=== PATIENT | male | born 1945 | race Caucasian/White ===

== ENCOUNTER 2020-08-10 07:19 | Inpatient (IN) ==
[2020-08-10] MEDS ORDERED: Heparin 1,000 UNITS/500 mL 500 ML ONE (07:40)
[2020-08-10] MEDS ORDERED: Nitroglycerin 1,000 MCG/5 ML VIAL IV ONE (07:40)
[2020-08-10] MEDS ORDERED: ISOVUE-370 200 ML INFUS..BTL ONE (07:40)
[2020-08-10] MEDS ORDERED: *HR* Heparin 10,000 UNIT/10 ML VIAL ONE (07:40)
[2020-08-10] MEDS ORDERED: 0.9 % Sodium Chloride 1,000 ML ONE ×2 (07:40→08:24)
[2020-08-10] MEDS ORDERED: *HR* FentaNYL (PF) 100 MCG/2 ML VIAL ONE (08:49)
[2020-08-10] MEDS ORDERED: *HR* Midazolam HCl 2 MG/2 ML VIAL ONE (08:49)
[2020-08-10] MEDS ORDERED: Perflutren Lipid Microsphere 1.3 ML in 0.9 % Sodium Chloride 8.7 ML IVP PRN (12:37)
[2020-08-10] MEDS ORDERED: Nitroglycerin 0.4 MG TAB.SUBL SL PRN (12:38)
[2020-08-10] MEDS ORDERED: *HR* Heparin 5,000 UNIT/ML VIAL IVP PRN ×2 (12:45)
[2020-08-10] MEDS ORDERED: *HR* Heparin 5,000 UNIT/ML VIAL IVP ONE (12:45)
[2020-08-10] MEDS: Heparin 25,000UNIT/250ML 1/2NS 25,000 UNIT/250 ML IV.SOLN IVC SCH (14:29)
[2020-08-10 14:55] LABS: Basophils % 0.5 %; Eosinophils # 0.3 K/mcL (0.0-0.6); Eosinophils % 5.2 %; Hematocrit 41.6 % (37.5-50.1); Hemoglobin 13.9 g/dL (12.9-16.9); Immature Granulocytes % 0.4 % (0-4); Lymphocytes # 1.3 K/mcL (0.6-4.6); Lymphocytes % 22.5 %; Mean Corpuscular HGB Conc 33.4 g/dL (31.6-35.5); Mean Corpuscular Hemoglobin 30.1 pg (28.0-33.3); Mean Platelet Volume 9.9 fL (9.4-12.4); Monocytes % 17.6 %; Platelet Count 237 K/mcL (140-400); Red Blood Count 4.62 M/mcL (4.19-5.50); Segmented Neutrophils % 53.8 %; White Blood Count 5.6 K/mcL (4.3-11.1)
[2020-08-10 15:04] LABS: INR 1.1; Prothrombin Time 12.4 Seconds (9.4-12.1)
[2020-08-10 15:06] LABS: Activated Partial Thrombo Time 52.3 Seconds (26.0-36.0)
[2020-08-10 15:15] LABS: BUN/Creatinine Ratio 21 (6-26); Blood Urea Nitrogen 16 mg/dL (8-23); Calcium 8.9 mg/dL (8.6-10.3); Carbon Dioxide 26 mEq/L (23-29); Chloride 107 mEq/L (98-107); Chol/HDL Ratio 4.7 (0-4.9); Cholesterol 221 mg/dL (< 200); Glucose 94 mg/dL (70-105); HDL Cholesterol 47 mg/dL (40-59); LDL Cholesterol,Calculated 144 mg/dL (< 100); Osmolality,Calculated 289 (280-300); Potassium 3.6 mEq/L (3.5-5.1); Sodium 139 mEq/L (136-145); Triglycerides 152 mg/dL (< 150); eGFR For African Americans > 60 (> 60); eGFR For Non-African Americans > 60 (> 60)
[2020-08-10 15:30] LABS: Estimated Average Glucose 123 mg/dl; Hemoglobin A1C 5.9 %
[2020-08-10] MEDS: Chlorhexidine Rinse 15 ML MOUTHWASH MM SCH (20:49)
[2020-08-10 21:39] LABS: Bilirubin,Urine Negative (Negative); Blood,Urine Negative (Negative); Clarity,Urine Clear (Clear); Color,Urine Colorless (Yellow); Glucose,Urine (UA) Normal (Normal); Ketones,Urine Negative (Negative); Leukocyte Esterase,Urine Negative (Negative); Nitrite,Urine Negative (Negative); PH,Urine 6.5 pH Units (5.0-8.0); Protein,Urine Negative (Neg-Trace); Specific Gravity,Urine < 1.005 (1.010-1.025); Urobilinogen,Urine Normal (Normal)
[2020-08-11] MEDS: Aspirin 81 MG TAB.CHEW PO SCH (07:41)
[2020-08-11] MEDS: Folic Acid 1 MG TABLET PO SCH (07:41)
[2020-08-11] MEDS: Isosorbide MONOnitrate (24 HR) 30 MG TAB.ER.24H PO SCH (07:41)
[2020-08-11] MEDS: Chlorhexidine Rinse 15 ML MOUTHWASH MM SCH (07:41)
[2020-08-11] MEDS: Heparin 25,000UNIT/250ML 1/2NS 25,000 UNIT/250 ML IV.SOLN IVC SCH (15:36)
[2020-08-12] MEDS: Chlorhexidine Rinse 15 ML MOUTHWASH MM SCH ×3 (01:40→19:43)
[2020-08-12] MEDS ORDERED: *HR* FentaNYL (PF) 1,000 MCG/20 ML VIAL ONE (06:46)
[2020-08-12] MEDS ORDERED: *HR* Midazolam HCl 5 MG/5 ML VIAL IVP ONE (06:46)
[2020-08-12] MEDS ORDERED: *HR* Propofol 200 MG/20 ML VIAL IVP ONE (06:46)
[2020-08-12] MEDS ORDERED: Papaverine 60 MG/2 ML VIAL IVP ONE (06:53)
[2020-08-12] MEDS ORDERED: *HR* Rocuronium Bromide 50 MG/5 ML VIAL ONE ×2 (06:55→08:42)
[2020-08-12] MEDS ORDERED: Famotidine 20 MG/2 ML VIAL ONE (06:55)
[2020-08-12] MEDS ORDERED: Tranexamic Acid 1,000 MG/10 ML VIAL ONE (06:56)
[2020-08-12] MEDS ORDERED: Lidocaine 2% Syringe 100 MG/5 ML ONE (06:56)
[2020-08-12] MEDS ORDERED: CeFAZolin Syr 2,000MG/20 ML 2,000 MG/20 ML SYRINGE IVPB ONE (07:00)
[2020-08-12] MEDS ORDERED: Heparin 15,000 UNIT in 0.9 % Sodium Chloride 500 ML IV ONE (07:45)
[2020-08-12] MEDS ORDERED: Dextrose 50 % in Water (Vial) 30 ML, Sodium Bicarbonate 20 MEQ, Potassium Chloride 15 M... TH ONE (07:45)
[2020-08-12] MEDS ORDERED: Norepinephrine 4 MG in 0.9 % Sodium Chloride 250 ML IVC PRN (07:45)
[2020-08-12] MEDS ORDERED: Dextrose 50 % in Water (Vial) 30 ML, Sodium Bicarbonate 20 MEQ, Lidocaine 1% 5 ML, Insu... TH ONE ×3 (07:45)
[2020-08-12 08:31] LABS: ABG Base Excess 2 mEq/L (-2 to 3); ABG Chloride 105 mEq/L (98-107); ABG Glucose 108 mg/dL (60-95); ABG HCO3 26 mEq/L (21-27); ABG Ionized Calcium 1.19 mmol/L (1.15-1.35); ABG Oxygen Saturation 100 % (95-98); ABG PCO2 39 mmHg (35-45); ABG PH 7.43 pH Units (7.32-7.45); ABG PO2 446 mmHg (85-104); ABG TCO2 27 mEq/L (20-26)
[2020-08-12] MEDS ORDERED: Chlorhexidine Rinse 15 ML MOUTHWASH MM SCH (09:00)
[2020-08-12 09:14] LABS: ABG Base Excess 0 mEq/L (-2 to 3); ABG Chloride 104 mEq/L (98-107); ABG Glucose 182 mg/dL (60-95); ABG HCO3 24 mEq/L (21-27); ABG Ionized Calcium 1.15 mmol/L (1.15-1.35); ABG Oxygen Saturation 100 % (95-98); ABG PCO2 37 mmHg (35-45); ABG PH 7.42 pH Units (7.32-7.45); ABG PO2 228 mmHg (85-104); ABG TCO2 25 mEq/L (20-26)
[2020-08-12 10:19] LABS: ABG Base Excess 2 mEq/L (-2 to 3); ABG Chloride 101 mEq/L (98-107); ABG Glucose 174 mg/dL (60-95); ABG HCO3 26 mEq/L (21-27); ABG Ionized Calcium 0.95 mmol/L (1.15-1.35); ABG Oxygen Saturation 100 % (95-98); ABG PCO2 38 mmHg (35-45); ABG PH 7.45 pH Units (7.32-7.45); ABG PO2 265 mmHg (85-104); ABG TCO2 28 mEq/L (20-26)
[2020-08-12] MEDS ORDERED: Protamine Sulfate 50 MG/5 ML VIAL IVP ONE (10:19)
[2020-08-12] MEDS ORDERED: Protamine Sulfate 250 MG/25 ML VIAL IVP ONE (10:19)
[2020-08-12] MEDS ORDERED: Calcium Gluconate 1,000 MG/10 ML VIAL ONE (10:20)
[2020-08-12 10:47] LABS: ABG Base Excess 4 mEq/L (-2 to 3); ABG Chloride 102 mEq/L (98-107); ABG Glucose 122 mg/dL (60-95); ABG HCO3 29 mEq/L (21-27); ABG Ionized Calcium 1.26 mmol/L (1.15-1.35); ABG Oxygen Saturation 100 % (95-98); ABG PCO2 49 mmHg (35-45); ABG PH 7.38 pH Units (7.32-7.45); ABG PO2 537 mmHg (85-104); ABG TCO2 31 mEq/L (20-26)
[2020-08-12] MEDS ORDERED: Albumin Human 5% 12.5 GM/250 ML IV.SOLN ONE ×2 (11:09→12:19)
[2020-08-12 11:30] LABS: ABG Base Excess 0 mEq/L (-2 to 3); ABG Chloride 106 mEq/L (98-107); ABG Glucose 91 mg/dL (60-95); ABG HCO3 24 mEq/L (21-27); ABG Ionized Calcium 1.15 mmol/L (1.15-1.35); ABG Oxygen Saturation 100 % (95-98); ABG PCO2 37 mmHg (35-45); ABG PH 7.42 pH Units (7.32-7.45); ABG PO2 210 mmHg (85-104); ABG TCO2 25 mEq/L (20-26)
[2020-08-12] MEDS ORDERED: *HR* Dextrose 50 % in Water (Vial) 50 ML VIAL ONE (12:00)
[2020-08-12] MEDS ORDERED: *HR* Dextrose 50 % in Water (Vial) 50 ML VIAL IVP PRN (12:13)
[2020-08-12] MEDS ORDERED: *HR* Promethazine 25 MG/ML VIAL IM PRN (12:13)
[2020-08-12] MEDS ORDERED: Insulin Regular, Human 100 UNIT/ML IV PRN (12:13)
[2020-08-12] MEDS ORDERED: Sennosides 8.6 MG TABLET PO PRN (12:13)
[2020-08-12] MEDS ORDERED: Naloxone 0.4 MG/ML INJ IVP PRN (12:13)
[2020-08-12] MEDS ORDERED: Potassium Chloride 40 MEQ/200 ML BAG IVPB PRN (12:13)
[2020-08-12] MEDS ORDERED: Acetaminophen 325 MG TABLET PO PRN (12:13)
[2020-08-12 12:17] LABS: ABG Base Excess 1 mEq/L (-2 to 3); ABG HCO3 26 mEq/L (21-27); ABG Oxygen Saturation 100 % (95-98); ABG PCO2 40 mmHg (35-45); ABG PH 7.42 pH Units (7.32-7.45); ABG PO2 188 mmHg (85-104); ABG TCO2 27 mEq/L (20-26)
[2020-08-12 12:28] LABS: Basophils # 0.1 K/mcL (0.0-0.2); Basophils % 0.2 %; Eosinophils # 0.2 K/mcL (0.0-0.6); Eosinophils % 0.7 %; Immature Granulocytes % 1.3 % (0-4); Mean Corpuscular HGB Conc 33.3 g/dL (31.6-35.5); Mean Corpuscular Hemoglobin 29.6 pg (28.0-33.3); Mean Corpuscular Volume 88.9 fL (83.0-100.0); Mean Platelet Volume 10.3 fL (9.4-12.4); Monocytes % 8.1 %; Platelet Count 131 K/mcL (140-400); Red Blood Count 3.71 M/mcL (4.19-5.50); Segmented Neutrophils % 85.7 %
[2020-08-12] MEDS: Albumin Human 5% 12.5 GM/250 ML IV.SOLN IVPB PRN ×2 (12:30→13:33)
[2020-08-12 12:34] LABS: Neutrophils # 20.8 K/mcL (1.6-8.9); White Blood Count 24.3 K/mcL (4.3-11.1)
[2020-08-12] MEDS ORDERED: niCARdipine 20 MG/200 ML MLS IVC ONE (12:37)
[2020-08-12 12:38] LABS: INR 1.3; Prothrombin Time 15.2 Seconds (9.4-12.1)
[2020-08-12 12:40] LABS: Activated Partial Thrombo Time 44.1 Seconds (26.0-36.0)
[2020-08-12] MEDS: *HR* FentaNYL (PF) 100 MCG/2 ML VIAL IVP PRN ×4 (12:40→17:00)
[2020-08-12] MEDS: niCARdipine 20 MG/200 ML MLS IVC SCH ×3 (12:40→20:14)
[2020-08-12 12:43] LABS: BUN/Creatinine Ratio 14 (6-26); Blood Urea Nitrogen 11 mg/dL (8-23); Calcium 7.8 mg/dL (8.6-10.3); Carbon Dioxide 25 mEq/L (23-29); Chloride 108 mEq/L (98-107); Glucose 146 mg/dL (70-105); Magnesium 2.7 mg/dL (1.6-2.6); Osmolality,Calculated 294 (280-300); Potassium 3.3 mEq/L (3.5-5.1); Sodium 141 mEq/L (136-145); eGFR For African Americans > 60 (> 60); eGFR For Non-African Americans > 60 (> 60)
[2020-08-12] MEDS ORDERED: Albumin Human 25% 25 GM/100 ML IV.SOLN IVPB ONE (13:06)
[2020-08-12] MEDS ORDERED: Lidocaine 2% Syringe 100 MG/5 ML IVP ONE (13:06)
[2020-08-12] MEDS ORDERED: *HR* Magnesium Sulfate 2 GM/50 ML PIGGYBACK IVPB ONE (13:06)
[2020-08-12] MEDS ORDERED: D5% in Water 250 ML IV BAG IV ONE (13:06)
[2020-08-12] MEDS ORDERED: Tranexamic Acid 1,000 MG/10 ML VIAL IR ONE (13:06)
[2020-08-12] MEDS ORDERED: Heparin 1,000 UNITS/500 mL IV.SOLN IR ONE (13:06)
[2020-08-12] MEDS ORDERED: *HR* Heparin 10,000 UNIT/10 ML VIAL IR ONE (13:06)
[2020-08-12] MEDS ORDERED: *HR* Phenylephrine 10 MG/ML VIAL IVC ONE (13:06)
[2020-08-12] MEDS ORDERED: Mannitol 25% vial 12.5 GM/50 ML VIAL IVPB ONE (13:06)
[2020-08-12] MEDS: *HR* OxyCODONE/APAP 5/325 TABLET PO PRN ×2 (13:26→19:43)
[2020-08-12] MEDS: 0.9 % Sodium Chloride 1,000 ML IVC SCH (13:32)
[2020-08-12] MEDS: Isosorbide MONOnitrate (24 HR) 30 MG TAB.ER.24H PO SCH (13:42)
[2020-08-12] MEDS: Aspirin 81 MG TAB.CHEW PO SCH (13:42)
[2020-08-12] MEDS: Folic Acid 1 MG TABLET PO SCH (13:42)
[2020-08-12 15:47] LABS: ABG Base Excess -1 mEq/L (-2 to 3); ABG HCO3 24 mEq/L (21-27); ABG Oxygen Saturation 99 % (95-98); ABG PCO2 40 mmHg (35-45); ABG PH 7.39 pH Units (7.32-7.45); ABG PO2 119 mmHg (85-104); ABG TCO2 26 mEq/L (20-26); Blood Gas Modality CPAP/PS; Blood Gas Pressure Support 5 cm H2O
[2020-08-12] MEDS: CeFAZolin 2 GM/120 ML BAG IVPB SCH ×2 (16:00→23:51)
[2020-08-12] MEDS: Ondansetron 4 MG/2 ML VIAL IVP PRN (17:35)
[2020-08-12 18:48] LABS: Hematocrit 32.9 % (37.5-50.1); Hemoglobin 10.8 g/dL (12.9-16.9)
[2020-08-12] MEDS: Norepinephrine 4 MG/254 ML IV.SOLN IVC SCH (19:50)
[2020-08-12] MEDS: *HR* LORazepam 2 MG/ML VIAL IVP PRN (23:49)
[2020-08-13] MEDS: niCARdipine 20 MG/200 ML MLS IVC SCH ×7 (03:13→22:41)
[2020-08-13] MEDS: 0.9 % Sodium Chloride 1,000 ML IVC SCH ×2 (03:43→17:09)
[2020-08-13] MEDS: *HR* LORazepam 2 MG/ML VIAL IVP PRN ×4 (03:43→20:22)
[2020-08-13 04:44] LABS: Basophils % 0.1 %; Red Cell Distribution Width 14.2 % (11.5-14.5)
[2020-08-13 04:46] LABS: Immature Granulocytes % 0.4 % (0-4); Immature Platelets 5.9 % (1.1-6.1); Lymphocytes % 3.9 %; Mean Corpuscular HGB Conc 32.3 g/dL (31.6-35.5); Mean Corpuscular Hemoglobin 29.3 pg (28.0-33.3); Mean Corpuscular Volume 90.9 fL (83.0-100.0); Mean Platelet Volume 10.7 fL (9.4-12.4); Monocytes # 2.2 K/mcL (0.0-1.3); Monocytes % 15.8 %; Platelet Count 122 K/mcL (140-400); Red Blood Count 3.41 M/mcL (4.19-5.50); Segmented Neutrophils % 79.8 %
[2020-08-13 04:53] LABS: Lymphocytes # 0.6 K/mcL (0.6-4.6); Neutrophils # 11.2 K/mcL (1.6-8.9)
[2020-08-13 05:00] LABS: BUN/Creatinine Ratio 16 (6-26); Blood Urea Nitrogen 13 mg/dL (8-23); Calcium 7.3 mg/dL (8.6-10.3); Carbon Dioxide 25 mEq/L (23-29); Chloride 108 mEq/L (98-107); Glucose 141 mg/dL (70-105); Osmolality,Calculated 292 (280-300); Potassium 3.8 mEq/L (3.5-5.1); Sodium 140 mEq/L (136-145); eGFR For African Americans > 60 (> 60); eGFR For Non-African Americans > 60 (> 60)
[2020-08-13] MEDS: *HR* Metoprolol 5 MG/5 ML VIAL IVP PRN ×2 (09:34→19:16)
[2020-08-13] MEDS: *HR* FentaNYL (PF) 100 MCG/2 ML VIAL IVP PRN ×5 (09:36→18:15)
[2020-08-13] MEDS: Pantoprazole 40 MG VIAL IVP SCH (11:35)
[2020-08-13] MEDS: Folic Acid 1 MG TABLET PO SCH (11:36)
[2020-08-13] MEDS: Chlorhexidine Rinse 15 ML MOUTHWASH MM SCH ×2 (11:36→19:16)
[2020-08-13] MEDS: Isosorbide MONOnitrate (24 HR) 30 MG TAB.ER.24H PO SCH (11:36)
[2020-08-13] MEDS: Aspirin 81 MG TAB.CHEW PO SCH (11:37)
[2020-08-13] MEDS: Norepinephrine 4 MG/254 ML IV.SOLN IVC SCH (14:03)
[2020-08-13] MEDS: QUEtiapine Fumarate 25 MG TABLET PO PRN (19:16)
[2020-08-13] MEDS ORDERED: Amiodarone Premix 150 MG/100 ML BAG IVPB ONE ×2 (20:29→20:34)
[2020-08-13] MEDS ORDERED: Amiodarone Premix 360 MG/200 ML BAG IVC ONE (20:34)
[2020-08-13] MEDS: Amiodarone Premix 360 MG/200 ML BAG IVC ONE ×2 (20:58→21:00)
[2020-08-13] MEDS: Dexmedetomidine HCl 400 MCG/100 ML MLS IVC SCH (21:02)
[2020-08-14] MEDS: Amiodarone Premix 360 MG/200 ML BAG IVC SCH ×2 (02:47→14:31)
[2020-08-14] MEDS: niCARdipine 20 MG/200 ML MLS IVC SCH ×5 (04:02→23:20)
[2020-08-14 04:10] LABS: Basophils % 0.2 %; Eosinophils % 0.1 %; Hematocrit 29.5 % (37.5-50.1); Hemoglobin 9.7 g/dL (12.9-16.9); Immature Granulocytes % 0.3 % (0-4); Immature Platelets 5.2 % (1.1-6.1); Lymphocytes # 1.2 K/mcL (0.6-4.6); Lymphocytes % 8.3 %; Mean Corpuscular HGB Conc 32.9 g/dL (31.6-35.5); Mean Corpuscular Hemoglobin 30.2 pg (28.0-33.3); Mean Corpuscular Volume 91.9 fL (83.0-100.0); Mean Platelet Volume 11.3 fL (9.4-12.4); Monocytes # 2.3 K/mcL (0.0-1.3); Neutrophils # 10.9 K/mcL (1.6-8.9); Platelet Count 150 K/mcL (140-400); Red Blood Count 3.21 M/mcL (4.19-5.50); Red Cell Distribution Width 14.6 % (11.5-14.5); Segmented Neutrophils % 75.1 %; White Blood Count 14.5 K/mcL (4.3-11.1)
[2020-08-14 04:28] LABS: BUN/Creatinine Ratio 19 (6-26); Blood Urea Nitrogen 17 mg/dL (8-23); Calcium 7.6 mg/dL (8.6-10.3); Carbon Dioxide 27 mEq/L (23-29); Chloride 107 mEq/L (98-107); Glucose 136 mg/dL (70-105); Osmolality,Calculated 292 (280-300); Potassium 4.1 mEq/L (3.5-5.1); Sodium 139 mEq/L (136-145); eGFR For African Americans > 60 (> 60); eGFR For Non-African Americans > 60 (> 60)
[2020-08-14] MEDS: 0.9 % Sodium Chloride 1,000 ML IVC SCH (05:27)
[2020-08-14] MEDS: Dexmedetomidine HCl 400 MCG/100 ML MLS IVC SCH ×2 (05:31→19:11)
[2020-08-14] MEDS: Isosorbide MONOnitrate (24 HR) 30 MG TAB.ER.24H PO SCH (08:27)
[2020-08-14] MEDS: Folic Acid 1 MG TABLET PO SCH (08:27)
[2020-08-14] MEDS: Aspirin 81 MG TAB.CHEW PO SCH (08:27)
[2020-08-14] MEDS: *HR* LORazepam 2 MG/ML VIAL IVP PRN ×2 (08:28→21:08)
[2020-08-14] MEDS: Chlorhexidine Rinse 15 ML MOUTHWASH MM SCH ×2 (08:28→19:04)
[2020-08-14] MEDS: *HR* FentaNYL (PF) 100 MCG/2 ML VIAL IVP PRN (08:28)
[2020-08-14] MEDS: Pantoprazole 40 MG VIAL IVP SCH (08:28)
[2020-08-14] MEDS: Norepinephrine 4 MG/254 ML IV.SOLN IVC SCH (19:04)
[2020-08-14] MEDS: QUEtiapine Fumarate 25 MG TABLET PO PRN (19:04)
[2020-08-15] MEDS: Amiodarone Premix 360 MG/200 ML BAG IVC SCH ×2 (02:49→15:15)
[2020-08-15] MEDS: niCARdipine 20 MG/200 ML MLS IVC SCH ×3 (03:16→22:05)
[2020-08-15 04:23] LABS: Basophils % 0.2 %; Eosinophils # 0.2 K/mcL (0.0-0.6); Eosinophils % 1.6 %; Hematocrit 26.6 % (37.5-50.1); Hemoglobin 8.5 g/dL (12.9-16.9); Immature Granulocytes % 0.6 % (0-4); Lymphocytes # 1.5 K/mcL (0.6-4.6); Lymphocytes % 11.5 %; Mean Corpuscular Hemoglobin 29.4 pg (28.0-33.3); Mean Platelet Volume 10.9 fL (9.4-12.4); Monocytes # 1.1 K/mcL (0.0-1.3); Monocytes % 8.1 %; Neutrophils # 10.4 K/mcL (1.6-8.9); Platelet Count 144 K/mcL (140-400); Red Blood Count 2.89 M/mcL (4.19-5.50); Red Cell Distribution Width 14.4 % (11.5-14.5); White Blood Count 13.3 K/mcL (4.3-11.1)
[2020-08-15 04:49] LABS: BUN/Creatinine Ratio 27 (6-26); Blood Urea Nitrogen 22 mg/dL (8-23); Calcium 7.5 mg/dL (8.6-10.3); Carbon Dioxide 29 mEq/L (23-29); Chloride 105 mEq/L (98-107); Glucose 114 mg/dL (70-105); Osmolality,Calculated 290 (280-300); Potassium 3.6 mEq/L (3.5-5.1); Sodium 138 mEq/L (136-145); eGFR For African Americans > 60 (> 60); eGFR For Non-African Americans > 60 (> 60)
[2020-08-15] MEDS: Chlorhexidine Rinse 15 ML MOUTHWASH MM SCH ×2 (07:51→22:05)
[2020-08-15] MEDS: Folic Acid 1 MG TABLET PO SCH (07:51)
[2020-08-15] MEDS: *HR* OxyCODONE/APAP 5/325 TABLET PO PRN (07:51)
[2020-08-15] MEDS: Aspirin 81 MG TAB.CHEW PO SCH (07:52)
[2020-08-15] MEDS: Isosorbide MONOnitrate (24 HR) 30 MG TAB.ER.24H PO SCH (07:52)
[2020-08-15] MEDS: *HR* LORazepam 2 MG/ML VIAL IVP PRN (07:52)
[2020-08-15] MEDS: Pantoprazole 40 MG VIAL IVP SCH (07:52)
[2020-08-15] MEDS: Dexmedetomidine HCl 400 MCG/100 ML MLS IVC SCH (15:25)
[2020-08-15] MEDS: Norepinephrine 4 MG/254 ML IV.SOLN IVC SCH (22:05)
[2020-08-16] MEDS: niCARdipine 20 MG/200 ML MLS IVC SCH ×6 (00:17→20:03)
[2020-08-16 04:06] LABS: Basophils % 0.3 %; Eosinophils # 0.6 K/mcL (0.0-0.6); Eosinophils % 4.6 %; Hematocrit 26.1 % (37.5-50.1); Hemoglobin 8.3 g/dL (12.9-16.9); Immature Granulocytes % 0.6 % (0-4); Lymphocytes # 0.7 K/mcL (0.6-4.6); Lymphocytes % 5.4 %; Mean Corpuscular HGB Conc 31.8 g/dL (31.6-35.5); Mean Corpuscular Hemoglobin 29.2 pg (28.0-33.3); Mean Corpuscular Volume 91.9 fL (83.0-100.0); Mean Platelet Volume 10.4 fL (9.4-12.4); Monocytes # 1.4 K/mcL (0.0-1.3); Monocytes % 11.4 %; Neutrophils # 9.7 K/mcL (1.6-8.9); Nucleated Red Blood Cells 0.2 /100 WBC (0); Platelet Count 183 K/mcL (140-400); Red Blood Count 2.84 M/mcL (4.19-5.50); Red Cell Distribution Width 14.2 % (11.5-14.5); Segmented Neutrophils % 77.7 %; White Blood Count 12.5 K/mcL (4.3-11.1)
[2020-08-16] MEDS: Dexmedetomidine HCl 400 MCG/100 ML MLS IVC SCH (04:23)
[2020-08-16] MEDS: Amiodarone Premix 360 MG/200 ML BAG IVC SCH ×2 (04:23→15:55)
[2020-08-16 04:25] LABS: BUN/Creatinine Ratio 31 (6-26); Blood Urea Nitrogen 24 mg/dL (8-23); Calcium 7.5 mg/dL (8.6-10.3); Carbon Dioxide 29 mEq/L (23-29); Chloride 106 mEq/L (98-107); Glucose 115 mg/dL (70-105); Osmolality,Calculated 295 (280-300); Potassium 3.6 mEq/L (3.5-5.1); Sodium 140 mEq/L (136-145); eGFR For African Americans > 60 (> 60); eGFR For Non-African Americans > 60 (> 60)
[2020-08-16] MEDS: Chlorhexidine Rinse 15 ML MOUTHWASH MM SCH ×2 (08:31→20:09)
[2020-08-16] MEDS: Pantoprazole 40 MG VIAL IVP SCH (08:36)
[2020-08-16] MEDS: Norepinephrine 4 MG/254 ML IV.SOLN IVC SCH (10:14)
[2020-08-16] MEDS: Aspirin 81 MG TAB.CHEW PO SCH (11:03)
[2020-08-16] MEDS: Folic Acid 1 MG TABLET PO SCH (11:05)
[2020-08-16] MEDS: Isosorbide MONOnitrate (24 HR) 30 MG TAB.ER.24H PO SCH (14:26)
[2020-08-16] MEDS: *HR* FentaNYL (PF) 100 MCG/2 ML VIAL IVP PRN (22:46)
[2020-08-16] MEDS: *HR* LORazepam 2 MG/ML VIAL IVP PRN (22:47)
[2020-08-17] MEDS: niCARdipine 20 MG/200 ML MLS IVC SCH ×6 (01:25→19:18)
[2020-08-17] MEDS: Amiodarone Premix 360 MG/200 ML BAG IVC SCH (03:25)
[2020-08-17] MEDS: Dexmedetomidine HCl 400 MCG/100 ML MLS IVC SCH (03:25)
[2020-08-17] MEDS: Chlorhexidine Rinse 15 ML MOUTHWASH MM SCH ×2 (08:31→19:51)
[2020-08-17] MEDS: Isosorbide MONOnitrate (24 HR) 30 MG TAB.ER.24H PO SCH (08:31)
[2020-08-17] MEDS: Folic Acid 1 MG TABLET PO SCH (08:31)
[2020-08-17] MEDS: Aspirin 81 MG TAB.CHEW PO SCH (08:31)
[2020-08-17] MEDS: Norepinephrine 4 MG/254 ML IV.SOLN IVC SCH (13:03)
[2020-08-17] MEDS: QUEtiapine Fumarate 25 MG TABLET PO PRN (22:04)
[2020-08-18] MEDS: niCARdipine 20 MG/200 ML MLS IVC SCH ×7 (00:32→22:16)
[2020-08-18] MEDS: Amiodarone Premix 360 MG/200 ML BAG IVC SCH (05:39)
[2020-08-18 05:54] LABS: Basophils % 0.4 %; Eosinophils # 0.6 K/mcL (0.0-0.6); Hematocrit 24.4 % (37.5-50.1); Immature Granulocytes % 1.4 % (0-4); Lymphocytes # 1.4 K/mcL (0.6-4.6); Lymphocytes % 12.4 %; Mean Corpuscular HGB Conc 32.8 g/dL (31.6-35.5); Mean Corpuscular Hemoglobin 29.4 pg (28.0-33.3); Mean Corpuscular Volume 89.7 fL (83.0-100.0); Neutrophils # 6.9 K/mcL (1.6-8.9); Platelet Count 301 K/mcL (140-400); Red Blood Count 2.72 M/mcL (4.19-5.50); Red Cell Distribution Width 14.3 % (11.5-14.5); Segmented Neutrophils % 62.8 %
[2020-08-18 06:07] LABS: BUN/Creatinine Ratio 20 (6-26); Blood Urea Nitrogen 16 mg/dL (8-23); Calcium 7.9 mg/dL (8.6-10.3); Carbon Dioxide 30 mEq/L (23-29); Chloride 102 mEq/L (98-107); Glucose 117 mg/dL (70-105); Osmolality,Calculated 286 (280-300); Potassium 3.2 mEq/L (3.5-5.1); Sodium 137 mEq/L (136-145); eGFR For African Americans > 60 (> 60); eGFR For Non-African Americans > 60 (> 60)
[2020-08-18] MEDS: Folic Acid 1 MG TABLET PO SCH (08:04)
[2020-08-18] MEDS: Isosorbide MONOnitrate (24 HR) 30 MG TAB.ER.24H PO SCH (08:04)
[2020-08-18] MEDS: Aspirin 81 MG TAB.CHEW PO SCH (08:05)
[2020-08-18] MEDS: Chlorhexidine Rinse 15 ML MOUTHWASH MM SCH ×2 (08:05→20:03)
[2020-08-18] MEDS: *HR* Heparin 5,000 UNIT/ML VIAL SQ SCH ×2 (09:24→17:37)
[2020-08-18] MEDS: *HR* Amiodarone 200 MG TABLET PO SCH (09:24)
[2020-08-18] MEDS: Norepinephrine 4 MG/254 ML IV.SOLN IVC SCH (14:54)
[2020-08-18] MEDS: QUEtiapine Fumarate 25 MG TABLET PO PRN (20:03)
[2020-08-18] MEDS: Dexmedetomidine HCl 400 MCG/100 ML MLS IVC SCH (20:04)
[2020-08-19] MEDS: *HR* OxyCODONE/APAP 5/325 TABLET PO PRN ×2 (01:05→13:30)
[2020-08-19] MEDS: niCARdipine 20 MG/200 ML MLS IVC SCH ×4 (03:18→23:40)
[2020-08-19] MEDS: *HR* Heparin 5,000 UNIT/ML VIAL SQ SCH ×2 (04:59→17:58)
[2020-08-19] MEDS: *HR* Amiodarone 200 MG TABLET PO SCH (07:49)
[2020-08-19] MEDS: Isosorbide MONOnitrate (24 HR) 30 MG TAB.ER.24H PO SCH (07:50)
[2020-08-19] MEDS: Aspirin 81 MG TAB.CHEW PO SCH (07:50)
[2020-08-19] MEDS: Folic Acid 1 MG TABLET PO SCH (07:50)
[2020-08-19] MEDS: Chlorhexidine Rinse 15 ML MOUTHWASH MM SCH ×2 (07:50→20:36)
[2020-08-19] MEDS: Norepinephrine 4 MG/254 ML IV.SOLN IVC SCH (19:33)
[2020-08-19] MEDS: Dexmedetomidine HCl 400 MCG/100 ML MLS IVC SCH (19:52)
[2020-08-19] MEDS: QUEtiapine Fumarate 25 MG TABLET PO PRN (20:36)
[2020-08-20] MEDS: niCARdipine 20 MG/200 ML MLS IVC SCH ×6 (03:32→20:01)
[2020-08-20] MEDS: *HR* Heparin 5,000 UNIT/ML VIAL SQ SCH ×2 (05:33→17:01)
[2020-08-20 06:43] LABS: Basophils # 0.1 K/mcL (0.0-0.2); Basophils % 0.4 %; Eosinophils # 0.5 K/mcL (0.0-0.6); Eosinophils % 3.4 %; Hematocrit 28.5 % (37.5-50.1); Immature Granulocytes % 1.8 % (0-4); Lymphocytes # 1.2 K/mcL (0.6-4.6); Lymphocytes % 8.5 %; Mean Corpuscular HGB Conc 31.6 g/dL (31.6-35.5); Mean Corpuscular Hemoglobin 28.5 pg (28.0-33.3); Mean Corpuscular Volume 90.2 fL (83.0-100.0); Mean Platelet Volume 10.5 fL (9.4-12.4); Monocytes # 1.6 K/mcL (0.0-1.3); Monocytes % 11.5 %; Neutrophils # 10.4 K/mcL (1.6-8.9); Platelet Count 321 K/mcL (140-400); Red Blood Count 3.16 M/mcL (4.19-5.50); Red Cell Distribution Width 14.6 % (11.5-14.5); Segmented Neutrophils % 74.4 %; White Blood Count 13.9 K/mcL (4.3-11.1)
[2020-08-20 07:02] LABS: BUN/Creatinine Ratio 19 (6-26); Blood Urea Nitrogen 14 mg/dL (8-23); Calcium 8.2 mg/dL (8.6-10.3); Carbon Dioxide 27 mEq/L (23-29); Chloride 103 mEq/L (98-107); Glucose 112 mg/dL (70-105); Osmolality,Calculated 287 (280-300); Potassium 3.4 mEq/L (3.5-5.1); Sodium 138 mEq/L (136-145); eGFR For African Americans > 60 (> 60); eGFR For Non-African Americans > 60 (> 60)
[2020-08-20] MEDS: Aspirin 81 MG TAB.CHEW PO SCH (08:39)
[2020-08-20] MEDS: Folic Acid 1 MG TABLET PO SCH (08:39)
[2020-08-20] MEDS: *HR* Amiodarone 200 MG TABLET PO SCH (08:39)
[2020-08-20] MEDS: Chlorhexidine Rinse 15 ML MOUTHWASH MM SCH ×2 (08:39→20:00)
[2020-08-20] MEDS: Isosorbide MONOnitrate (24 HR) 30 MG TAB.ER.24H PO SCH (08:39)
[2020-08-20] MEDS: Norepinephrine 4 MG/254 ML IV.SOLN IVC SCH (10:27)
[2020-08-20] MEDS: *HR* OxyCODONE/APAP 5/325 TABLET PO PRN (17:01)
[2020-08-20] MEDS: Ondansetron 4 MG/2 ML VIAL IVP PRN (17:38)
[2020-08-20] MEDS: Dexmedetomidine HCl 400 MCG/100 ML MLS IVC SCH (19:24)
[2020-08-20] MEDS: QUEtiapine Fumarate 25 MG TABLET PO PRN (22:49)
[2020-08-21] MEDS: *HR* Heparin 5,000 UNIT/ML VIAL SQ SCH ×2 (05:05→17:35)
[2020-08-21 05:51] LABS: Basophils # 0.1 K/mcL (0.0-0.2); Basophils % 0.4 %; Eosinophils # 0.6 K/mcL (0.0-0.6); Eosinophils % 5.3 %; Hematocrit 30.5 % (37.5-50.1); Hemoglobin 9.8 g/dL (12.9-16.9); Immature Granulocytes % 2.2 % (0-4); Lymphocytes # 1.2 K/mcL (0.6-4.6); Mean Corpuscular HGB Conc 32.1 g/dL (31.6-35.5); Mean Corpuscular Hemoglobin 29.2 pg (28.0-33.3); Mean Corpuscular Volume 90.8 fL (83.0-100.0); Mean Platelet Volume 10.8 fL (9.4-12.4); Monocytes # 1.5 K/mcL (0.0-1.3); Monocytes % 13.8 %; Neutrophils # 7.5 K/mcL (1.6-8.9); Platelet Count 235 K/mcL (140-400); Red Blood Count 3.36 M/mcL (4.19-5.50); Red Cell Distribution Width 14.7 % (11.5-14.5); Segmented Neutrophils % 67.3 %; White Blood Count 11.1 K/mcL (4.3-11.1)
[2020-08-21 06:12] LABS: BUN/Creatinine Ratio 18 (6-26); Blood Urea Nitrogen 15 mg/dL (8-23); Calcium 8.5 mg/dL (8.6-10.3); Carbon Dioxide 26 mEq/L (23-29); Chloride 103 mEq/L (98-107); Glucose 104 mg/dL (70-105); Osmolality,Calculated 285 (280-300); Potassium 3.8 mEq/L (3.5-5.1); Sodium 137 mEq/L (136-145); eGFR For African Americans > 60 (> 60); eGFR For Non-African Americans > 60 (> 60)
[2020-08-21] MEDS ORDERED: D5% in Water 1,000 ML IVC PRN (07:35)
[2020-08-21] MEDS ORDERED: Dextrose Gel 15 GM/37.5 ML TUBE PO PRN ×2 (07:35)
[2020-08-21] MEDS ORDERED: *HR* Dextrose 50 % in Water (Vial) 50 ML VIAL IVP PRN (07:35)
[2020-08-21] MEDS: *HR* Amiodarone 200 MG TABLET PO SCH (09:22)
[2020-08-21] MEDS: Aspirin 81 MG TAB.CHEW PO SCH (09:23)
[2020-08-21] MEDS: Folic Acid 1 MG TABLET PO SCH (09:23)
[2020-08-21] MEDS: Isosorbide MONOnitrate (24 HR) 30 MG TAB.ER.24H PO SCH (09:23)
[2020-08-21] MEDS: Insulin LISPRO 300 UNITS/3 ML VIAL SUBQ SCH ×3 (11:39→20:01)
[2020-08-21] MEDS: QUEtiapine Fumarate 25 MG TABLET PO PRN (20:00)
[2020-08-21] MEDS: *HR* OxyCODONE/APAP 5/325 TABLET PO PRN (20:10)
[2020-08-22] MEDS: *HR* Heparin 5,000 UNIT/ML VIAL SQ SCH ×2 (05:02→17:45)
[2020-08-22] MEDS: Insulin LISPRO 300 UNITS/3 ML VIAL SUBQ SCH ×4 (08:33→19:00)
[2020-08-22] MEDS: Aspirin 81 MG TAB.CHEW PO SCH (09:11)
[2020-08-22] MEDS: *HR* Amiodarone 200 MG TABLET PO SCH (09:11)
[2020-08-22] MEDS: Folic Acid 1 MG TABLET PO SCH (09:11)
[2020-08-22] MEDS: Isosorbide MONOnitrate (24 HR) 30 MG TAB.ER.24H PO SCH (13:15)
[2020-08-22] MEDS: QUEtiapine Fumarate 25 MG TABLET PO PRN (20:00)
[2020-08-23] MEDS: *HR* Heparin 5,000 UNIT/ML VIAL SQ SCH (05:07)
[2020-08-23] MEDS: Insulin LISPRO 300 UNITS/3 ML VIAL SUBQ SCH ×2 (07:45→12:01)
[2020-08-23] MEDS: *HR* Amiodarone 200 MG TABLET PO SCH (09:34)
[2020-08-23] MEDS: Folic Acid 1 MG TABLET PO SCH (09:34)
[2020-08-23] MEDS: Aspirin 81 MG TAB.CHEW PO SCH (09:34)
[2020-08-23] MEDS: Isosorbide MONOnitrate (24 HR) 30 MG TAB.ER.24H PO SCH (12:00)
[2020-08-23 15:52] LABS: Adenovirus Not Detected (Not Detect); Bordetella Pertussis Not Detected (Not Detect); Chlamydophila pneumoniae Not Detected (Not Detect); Coronavirus 229E Not Detected (Not Detect); Coronavirus HKU1 Not Detected (Not Detect); Coronavirus NL63 Not Detected (Not Detect); Coronavirus OC43 Not Detected (Not Detect); Human Metapneumovirus Not Detected (Not Detect); Human Rhinovirus/Enterovirus Not Detected (Not Detect); Influenza A Subtype 2009 H1 Not Detected (Not Detect); Influenza B Not Detected (Not Detect); Mycoplasma pneumoniae Not Detected (Not Detect); Parainfluenza Virus 1 Not Detected (Not Detect); Parainfluenza Virus 2 Not Detected (Not Detect); Parainfluenza Virus 3 Not Detected (Not Detect); Parainfluenza Virus 4 Not Detected (Not Detect); Respiratory Syncytial Virus Not Detected (Not Detect); SARS-CoV-2 Not Detected (Not Detect)
[2020-08-23 16:16] VITALS: BP 102/69
== END 2020-08-23 17:05 | disposition other institution (70) | DRG 234 ==
LOC: INVDIALAB 07:19 → 3BNU 14:04 → ICNU 08-12 07:51
PROVIDERS: ADMIT Internal Medicine Interventional Cardiology; ATTEND Thoracic Surgery (Cardiothoracic Vascular Surgery)